=== PATIENT | female | born 1960 | race Caucasian/White ===

== ENCOUNTER → 2020-01-05 09:23 | Outpatient (CLI) | payer OTHER, SELFPAY ==
[2020-01-05 10:46] LABS: COVID19 -Nasal RAPID Negative (Negative)
== END ==
PROVIDERS: Visit Provider Specialist
DX: Z11.59 Encounter for screening for other viral diseases (principal); Z01.812 Encounter for preprocedural laboratory examination
CPT/HCPCS: 87635; C9803

== ENCOUNTER 2020-01-06 12:39 | Day surgery (SDC) | payer OTHER, SELFPAY ==
--- NOTE | 2020-01-06 | PATH_ITS ---
[facility] Accession Number: [id number] . 01 Material submitted: . PART A: colon - ASCENDING COLON POLYP PART B: colon - CIRCULAR LESION IN ASCENDING COLON . 01 Clinical history: . SCREENING COLONOSCOPY . 02 Diagnosis: A. Ascending Colon, Polyp: Tubular adenoma. . B. Ascending Colon, Biopsy: Colonic mucosa with no diagnostic abnormality. Negative for active, chronic, and microscopic colitis. Negative for dysplasia and malignancy. Additional step section examined. [facility] 01/09/2020 1650 Local . 02 Electronically signed: . Rashid Meza MD, PhD, Pathologist NPI- [id number] . 01 Gross description: . Part A: ASCENDING COLON POLYP: Received in formalin are multiple fragment(s) of arriola, soft tissue measuring 0.1 x 0.1 x 0.1 cm to 0.3 x 0.3 x 0.2 cm submitted entirely in 1 cassette(s) Part B: CIRCULAR LESION IN ASCENDING COLON: Received in formalin are 2 fragment(s) of arriola, soft tissue measuring 0.3 x 0.2 x 0.2 cm to 0.5 x 0.2 x 0.2 cm submitted entirely in 1 cassette(s) /ROCHELLE 01/07/2020 0142 Local . 02 Pathologist provided ICD-10: D12.2, Z12.11 . 02 CPT . 790822, [id number] Performed at: 01 [facility] [address], [place], [place] [id number] MD Juan Ruiz MD Phone: [phone] Performed at: 02 [facility] [address] [place], [place] [id number] MD Adrienne Rivera MD Phone: [phone]
[2020-01-06] MEDS: LACTATED RINGERS 1,000 ML 42 ML IV (13:00)
[2020-01-06 13:04] VITALS: BP 127/81; PULSE 63; RESP 20; TEMP 36.2; O2SAT 100; BMI 23.3
--- NOTE | 2020-01-06 14:23 | PM.PREOP ---
Pre-operative Note COVID-19 COVID-19 status: Negative Result date/Date tested (Pos, Neg/Pending): 01/03/20 Interval Note History & Physical reviewed/Exam performed by Physician: Yes Changes to H&P: No ASA Class (for procedural sedation): I
[2020-01-06] MEDS: fentaNYL 250 MCG/5 ML INJ IV (14:36)
[2020-01-06] MEDS: MIDAZOLAM 5 MG/5 ML VIAL IV (14:36)
--- NOTE | 2020-01-06 14:53 | P.OP.ENDO_ITS ---
Operative Date/Time/Diagnoses Date of procedure: 01/06/20 Time of procedure: 14:57 Pre-op diagnosis: Positive fit test Post-op diagnosis: same (Two small polyps in the ascending colon and 1 unusual circular structure of the that the mucosa looked normal over but I took 2 biops ies of to confirm that it was distant unusual fold.) Procedure & Clinicians Study performed: Colonoscopy with cold biopsy Same procedure as scheduled: Yes Indications: Screening. She has never had a colonoscopy. Positive fit test. Surgeon: Phil Mccabe Procedure Notes SCOAP/Timeout: Performed Procedure in detail: The patient was placed in the left lateral decubitus position and underwent IV sedation directed by the surgeon consisting of fentanyl and Versed. Digital exam was unremarkable. The scope was inserted and advanced through the rectum into the sigmoid, descending, transverse, and ascending colon. No lesions were seen.. The cecum was reached identified by the ileocecal valve and the appendiceal opening. The ileocecal valve was successfully cannulated. The terminal ileum was normal in appearance. The scope was gradually brought out. Two Polyps were found in the ascending colon were biopsied and appeared to be completely removed. There is also an odd circular her area of mucosa. The surface of normal but I chose to biopsy it because it was so all odd. I did not attempt to remove the whole area. The scope was gradually brought out.. The scope ultimately was retroflexed in the rectum. The appearance was normal. The scope was removed and the patient tolerated the procedure well. The prep was very good Scope withdrawal time: 8 minutes(11 and half total) Sedation minutes: 27 Findings: polyp Specimen(s): other (Polyps and biopsy of circular lesion in the ascending colon) Complications: none Post-procedure Recommendations: Colonscopy in 5 years (Due to polyps) Follow up: as needed Disposition: PACU
[2020-01-06 14:56] VITALS: BP 123/68; PULSE 69; RESP 13; TEMP 36.3; O2SAT 97
[2020-01-06 15:01] VITALS: BP 114/76; PULSE 64; RESP 13; TEMP 36.4; O2SAT 97
[2020-01-06 15:07] VITALS: BP 131/87; PULSE 77; RESP 12; TEMP 36.5; O2SAT 96
[2020-01-06 15:13] VITALS: BP 130/82; PULSE 65; RESP 15; TEMP 36.5; O2SAT 96
== END 2020-01-06 15:29 | disposition home or self-care (01) ==
PROVIDERS: PCP Family Medicine; Referring Provider Specialist; Visit Provider Specialist
PROC: 0DJD8ZZ Inspection of Lower Intestinal Tract, Via Natural or Artificial Opening Endoscopic (ICD-10-PCS; CPT 45378; principal; 2020-01-06 13:45)
DX: R19.5 Other fecal abnormalities (principal); D12.2 Benign neoplasm of ascending colon
CPT/HCPCS: 45380; 99152; 99153; J2250; J3010